=== PATIENT | male | born 1955 | race Caucasian/White ===

== ENCOUNTER 2017-11-23 18:20 | Inpatient (IN) | payer BC, OTHER ==
[2017-11-23 20:53] LABS: ADD MAN DIFF? NO
[2017-11-23] MEDS: HYDROmorphONE 1 MG/ML SYG IV (20:53)
[2017-11-23] MEDS: SOD CHLORIDE 0.9% 1,000 ML IV (20:53)
[2017-11-23] MEDS: ONDANSETRON 4 MG INJ IV (20:53)
[2017-11-23 20:55] LABS: BASOPHILS % 0.3 % (0.0-2.0); EOSINOPHILS # 0.3 10^3/ul (0.0-0.5); EOSINOPHILS % 3.8 % (0.0-7.0); HEMATOCRIT 44.7 % (42.0-52.0); HEMOGLOBIN 13.8 g/dl (14.0-18.0); LYMPHOCYTES # 1.2 10^3/ul (0.8-2.9); LYMPHOCYTES % 15.3 % (15.0-51.0); MEAN CORPUSCULAR HEMOGLOBIN 24.6 pg (29.0-33.0); MEAN CORPUSCULAR HGB CONC 30.9 g/dl (32.0-37.0); MEAN CORPUSCULAR VOLUME 79.5 fl (82.0-101.0); MEAN PLATELET VOLUME 9.3 fl (7.4-10.4); MONOCYTE # 0.9 10^3/ul (0.3-0.9); MONOCYTES % 10.8 % (0.0-11.0); NEUTROPHIL # 5.5 10^3/ul (1.6-7.5); NEUTROPHILS % 69.5 % (39.0-77.0); PLATELET COUNT 279 10^3/UL (140-415); RED BLOOD COUNT 5.62 10^6/ul (4.70-6.10); RED CELL DISTRIBUTION WIDTH 17.1 % (11.5-14.5)
[2017-11-23 20:58] LABS: ADD UMIC NO; UR ASCORBIC ACID NEGATIVE (NEGATIVE); UR BILIRUBIN (Dip) NEGATIVE (NEGATIVE); UR BLOOD (Dip) NEGATIVE (NEGATIVE); UR CLARITY CLEAR (CLEAR); UR COLOR YELLOW (YELLOW); UR GLUCOSE (Dip) NEGATIVE (NEGATIVE); UR KETONES (Dip) NEGATIVE (NEGATIVE); UR LEUKOCYTE ESTERASE (Dip) NEGATIVE Leu/ul (NEGATIVE); UR NITRITE (Dip) NEGATIVE (NEGATIVE); UR SPECIFIC GRAVITY (Dip) 1.015 (1.003-1.030); UR TOTAL PROTEIN (Dip) NEGATIVE (NEGATIVE); UR UROBILINOGEN (Dip) NEGATIVE (NEGATIVE)
[2017-11-23 21:15] LABS: ALANINE AMINOTRANSFERASE 33 IU/L (13-69); ALBUMIN 4.2 g/dl (3.3-4.9); ALBUMIN/GLOBULIN RATIO 1.23; ALKALINE PHOSPHATASE 97 IU/L (42-121); ANION GAP 15 (8-16); ASPARTATE AMINO TRANSFERASE 24 IU/L (15-46); BILIRUBIN,INDIRECT 0.3 mg/dl (0-1.1); BILIRUBIN,TOTAL 0.3 mg/dl (0.2-1.3); BLOOD UREA NITROGEN 12 mg/dl (7-20); CALCIUM 9.1 mg/dl (8.4-10.2); CARBON DIOXIDE 28 mmol/L (21-31); CHLORIDE 104 mmol/L (97-110); CREATININE 1.03 mg/dl (0.61-1.24); GLUCOSE 106 mg/dl (70-220); LIPASE 290 U/L (23-300); POTASSIUM 4.1 mmol/L (3.5-5.1); SODIUM 143 mmol/L (135-144); TOTAL PROTEIN 7.6 g/dl (6.1-8.1)
[2017-11-23 21:27] LABS: TROPONIN-I < 0.010 ng/ml (0.000-0.120)
[2017-11-23] MEDS ORDERED: ACETAMINOPHEN 325 MG TAB PO (22:00)
[2017-11-23] MEDS: HYDROmorphONE 2 MG/ML SYG IV (22:05)
[2017-11-23] MEDS ORDERED: hydrALAzine 20 MG INJ IV (23:00)
[2017-11-23] MEDS: HYDROmorphONE 0.5 MG/0.5 ML SYG IV (23:32)
[2017-11-24] MEDS: SOD CHLORIDE 0.9% 100 ML (00:12)
[2017-11-24] MEDS: IODIXANOL LOCM 100 ML BTL (00:12)
[2017-11-24] MEDS: D5W-0.45 NACL + KCL 20 MEQ 1,000 ML IV ×4 (00:38→23:02)
[2017-11-24] MEDS ORDERED: HYDROmorphONE 1 MG/ML SYG IV (01:30)
[2017-11-24] MEDS: HYDROmorphONE 2 MG/ML SYG IV ×6 (02:40→21:34)
[2017-11-24] MEDS: ONDANSETRON 4 MG INJ IV ×3 (02:42→21:35)
[2017-11-24] MEDS: PANTOPRAZOLE 40 MG INJ IV (06:05)
[2017-11-24 06:11] LABS: ADD MAN DIFF? NO
[2017-11-24 06:45] LABS: BASOPHILS % 0.5 % (0.0-2.0); EOSINOPHILS # 0.3 10^3/ul (0.0-0.5); EOSINOPHILS % 4.8 % (0.0-7.0); HEMATOCRIT 35.9 % (42.0-52.0); HEMOGLOBIN 11.9 g/dl (14.0-18.0); LYMPHOCYTES # 1.5 10^3/ul (0.8-2.9); LYMPHOCYTES % 22.4 % (15.0-51.0); MEAN CORPUSCULAR HEMOGLOBIN 28.3 pg (29.0-33.0); MEAN CORPUSCULAR HGB CONC 33.1 g/dl (32.0-37.0); MEAN CORPUSCULAR VOLUME 85.3 fl (82.0-101.0); MEAN PLATELET VOLUME 10.7 fl (7.4-10.4); MONOCYTE # 0.8 10^3/ul (0.3-0.9); MONOCYTES % 12.1 % (0.0-11.0); NEUTROPHIL # 3.9 10^3/ul (1.6-7.5); PLATELET COUNT 233 10^3/UL (140-415); RED BLOOD COUNT 4.21 10^6/ul (4.70-6.10); RED CELL DISTRIBUTION WIDTH 19.9 % (11.5-14.5)
[2017-11-24 06:45] LABS: WHITE BLOOD COUNT 6.5 10^3/ul (4.8-10.8)
[2017-11-24 07:14] LABS: ALANINE AMINOTRANSFERASE 29 IU/L (13-69); ALBUMIN 3.3 g/dl (3.3-4.9); ALBUMIN/GLOBULIN RATIO 1.06; ALKALINE PHOSPHATASE 74 IU/L (42-121); ANION GAP 11 (8-16); ASPARTATE AMINO TRANSFERASE 21 IU/L (15-46); BILIRUBIN,INDIRECT 0.4 mg/dl (0-1.1); BILIRUBIN,TOTAL 0.4 mg/dl (0.2-1.3); BLOOD UREA NITROGEN 11 mg/dl (7-20); CALCIUM 8.3 mg/dl (8.4-10.2); CARBON DIOXIDE 30 mmol/L (21-31); CHLORIDE 104 mmol/L (97-110); CHOL/HDL RATIO 3.9 RATIO; CHOLESTEROL 135 mg/dl (100-200); CREATININE 0.97 mg/dl (0.61-1.24); GLUCOSE 92 mg/dl (70-220); HDL CHOLESTEROL 34 mg/dl (30-78); LDL CHOLESTEROL,CALCULATED 89 mg/dl; POTASSIUM 4.1 mmol/L (3.5-5.1); SODIUM 141 mmol/L (135-144); TOTAL PROTEIN 6.4 g/dl (6.1-8.1); TRIGLYCERIDES 60 mg/dl (0-149)
[2017-11-25] MEDS: HYDROmorphONE 2 MG/ML SYG IV ×6 (02:19→20:25)
[2017-11-25] MEDS: ONDANSETRON 4 MG INJ IV ×4 (02:19→15:58)
[2017-11-25 05:08] LABS: ADD MAN DIFF? NO
[2017-11-25 05:11] LABS: WHITE BLOOD COUNT 6.2 10^3/ul (4.8-10.8)
[2017-11-25 05:11] LABS: BASOPHILS % 0.5 % (0.0-2.0); EOSINOPHILS # 0.3 10^3/ul (0.0-0.5); HEMATOCRIT 41.8 % (42.0-52.0); LYMPHOCYTES # 0.7 10^3/ul (0.8-2.9); LYMPHOCYTES % 11.9 % (15.0-51.0); MEAN CORPUSCULAR HEMOGLOBIN 25.2 pg (29.0-33.0); MEAN CORPUSCULAR HGB CONC 31.1 g/dl (32.0-37.0); MEAN PLATELET VOLUME 9.6 fl (7.4-10.4); MONOCYTE # 0.4 10^3/ul (0.3-0.9); MONOCYTES % 6.2 % (0.0-11.0); NEUTROPHIL # 4.7 10^3/ul (1.6-7.5); NEUTROPHILS % 76.1 % (39.0-77.0); PLATELET COUNT 244 10^3/UL (140-415); RED BLOOD COUNT 5.16 10^6/ul (4.70-6.10)
[2017-11-25] MEDS: PANTOPRAZOLE 40 MG INJ IV (05:14)
[2017-11-25 05:50] LABS: AMYLASE 43 U/L (11-123); ANION GAP 13 (8-16); BLOOD UREA NITROGEN 8 mg/dl (7-20); CALCIUM 8.7 mg/dl (8.4-10.2); CARBON DIOXIDE 28 mmol/L (21-31); CHLORIDE 103 mmol/L (97-110); CREATININE 0.98 mg/dl (0.61-1.24); GLUCOSE 109 mg/dl (70-220); LIPASE 125 U/L (23-300); POTASSIUM 4.4 mmol/L (3.5-5.1); SODIUM 140 mmol/L (135-144)
[2017-11-25] MEDS: D5W-0.45 NACL + KCL 20 MEQ 1,000 ML IV ×2 (07:08→15:14)
[2017-11-25] MEDS: ACETAMINOPHEN 325 MG TAB PO (20:25)
[2017-11-26] MEDS: HYDROmorphONE 2 MG/ML SYG IV ×5 (00:29→18:55)
[2017-11-26] MEDS: D5W-0.45 NACL + KCL 20 MEQ 1,000 ML IV ×4 (00:33→23:00)
[2017-11-26] MEDS: PANTOPRAZOLE 40 MG INJ IV (06:11)
[2017-11-26] MEDS: ONDANSETRON 4 MG INJ IV ×4 (06:12→23:23)
[2017-11-26 06:45] LABS: ADD MAN DIFF? NO
[2017-11-26 06:47] LABS: ABNORMAL IP MESSAGE 1; BASOPHILS % 0.3 % (0.0-2.0); EOSINOPHILS # 0.1 10^3/ul (0.0-0.5); EOSINOPHILS % 2.2 % (0.0-7.0); HEMATOCRIT 41.5 % (42.0-52.0); HEMOGLOBIN 13.1 g/dl (14.0-18.0); LYMPHOCYTES # 0.6 10^3/ul (0.8-2.9); LYMPHOCYTES % 15.2 % (15.0-51.0); MEAN CORPUSCULAR HGB CONC 31.6 g/dl (32.0-37.0); MEAN CORPUSCULAR VOLUME 79.2 fl (82.0-101.0); MEAN PLATELET VOLUME 9.6 fl (7.4-10.4); MONOCYTE # 0.5 10^3/ul (0.3-0.9); MONOCYTES % 13.9 % (0.0-11.0); NEUTROPHIL # 2.5 10^3/ul (1.6-7.5); NEUTROPHILS % 68.1 % (39.0-77.0); PLATELET COUNT 214 10^3/UL (140-415); POSITIVE DIFF @See below; RED BLOOD COUNT 5.24 10^6/ul (4.70-6.10); RED CELL DISTRIBUTION WIDTH 16.7 % (11.5-14.5)
[2017-11-26 06:47] LABS: WHITE BLOOD COUNT 3.7 10^3/ul (4.8-10.8)
[2017-11-26 07:05] LABS: ANION GAP 11 (8-16); BLOOD UREA NITROGEN 8 mg/dl (7-20); CALCIUM 8.3 mg/dl (8.4-10.2); CARBON DIOXIDE 29 mmol/L (21-31); CHLORIDE 99 mmol/L (97-110); CREATININE 1.16 mg/dl (0.61-1.24); GLUCOSE 107 mg/dl (70-220); POTASSIUM 4.2 mmol/L (3.5-5.1); SODIUM 135 mmol/L (135-144)
[2017-11-26 07:35] LABS: THYROID STIMULATING HORMONE 0.282 MIU/L (0.465-4.680)
[2017-11-26] MEDS ORDERED: ANASTROZOLE 1 MG TAB PO (10:00)
[2017-11-26] MEDS: CEFTRIAXONE 1 GM/50 ML (PMX) 50 ML IVPB (12:55)
[2017-11-26] MEDS: THYROID 30 MG TAB PO (14:58)
[2017-11-26] MEDS: PANTOPRAZOLE (EC) 40 MG TAB PO (17:34)
[2017-11-26] MEDS: DIPYRIDAMOLE/ASPIRIN (SR) CAP PO (20:32)
[2017-11-26] MEDS: TAMSULOSIN (SR) 0.4 MG CAP PO (20:32)
[2017-11-26] MEDS: ATORVASTATIN 20 MG TAB PO (20:32)
[2017-11-26] MEDS: BISACODYL 10 MG SUPP PR (22:36)
[2017-11-27] MEDS: HYDROmorphONE 2 MG/ML SYG IV ×3 (00:45→17:56)
[2017-11-27] MEDS: D5W-0.45 NACL + KCL 20 MEQ 1,000 ML IV ×3 (00:49→21:05)
[2017-11-27] MEDS: PANTOPRAZOLE (EC) 40 MG TAB PO ×2 (07:00→17:31)
[2017-11-27] MEDS ORDERED: PROPOFOL 200 MG INJ (07:00)
[2017-11-27] MEDS ORDERED: LIDOCAINE 2% (SDV) 5 ML INJ (07:00)
[2017-11-27 07:36] LABS: ADD MAN DIFF? NO
[2017-11-27 07:38] LABS: WHITE BLOOD COUNT 3.8 10^3/ul (4.8-10.8)
[2017-11-27 07:38] LABS: BASOPHILS % 0.3 % (0.0-2.0); HEMATOCRIT 41.6 % (42.0-52.0); HEMOGLOBIN 13.1 g/dl (14.0-18.0); LYMPHOCYTES # 0.9 10^3/ul (0.8-2.9); LYMPHOCYTES % 22.3 % (15.0-51.0); MEAN CORPUSCULAR HEMOGLOBIN 25.4 pg (29.0-33.0); MEAN CORPUSCULAR HGB CONC 31.5 g/dl (32.0-37.0); MEAN CORPUSCULAR VOLUME 80.6 fl (82.0-101.0); MEAN PLATELET VOLUME 9.4 fl (7.4-10.4); MONOCYTE # 0.7 10^3/ul (0.3-0.9); MONOCYTES % 17.1 % (0.0-11.0); NEUTROPHIL # 2.3 10^3/ul (1.6-7.5); PLATELET COUNT 222 10^3/UL (140-415); RED BLOOD COUNT 5.16 10^6/ul (4.70-6.10); RED CELL DISTRIBUTION WIDTH 16.4 % (11.5-14.5)
[2017-11-27 07:57] LABS: INR 1.01; PROTIME 13.4 Sec (11.9-14.9)
[2017-11-27 07:59] LABS: ANION GAP 11 (8-16); BLOOD UREA NITROGEN 7 mg/dl (7-20); CALCIUM 8.6 mg/dl (8.4-10.2); CARBON DIOXIDE 30 mmol/L (21-31); CHLORIDE 100 mmol/L (97-110); GLUCOSE 123 mg/dl (70-220); POTASSIUM 4.4 mmol/L (3.5-5.1); SODIUM 137 mmol/L (135-144)
[2017-11-27] MEDS: THYROID 30 MG TAB PO (09:00)
[2017-11-27] MEDS: CEFTRIAXONE 1 GM/50 ML (PMX) 50 ML IVPB (11:30)
[2017-11-27] MEDS: PROPOFOL 20 ML (12:20)
[2017-11-27] MEDS: DIPYRIDAMOLE/ASPIRIN (SR) CAP PO ×2 (14:15→21:02)
[2017-11-27] MEDS: LISINOPRIL 10 MG TAB PO (14:16)
[2017-11-27] MEDS: SENNA TAB PO ×2 (14:16→21:02)
[2017-11-27] MEDS: ANASTROZOLE 1 MG TAB PO (15:23)
[2017-11-27] MEDS: ONDANSETRON 4 MG INJ IV ×2 (17:57→22:48)
[2017-11-27] MEDS: ATORVASTATIN 20 MG TAB PO (21:01)
[2017-11-27] MEDS: TAMSULOSIN (SR) 0.4 MG CAP PO (21:02)
[2017-11-27] MEDS: ACETAMINOPHEN 325 MG TAB PO (21:02)
[2017-11-28] MEDS: HYDROmorphONE 2 MG/ML SYG IV ×3 (01:17→19:47)
[2017-11-28] MEDS: D5W-0.45 NACL + KCL 20 MEQ 1,000 ML IV ×3 (05:24→15:00)
[2017-11-28 08:55] LABS: ANION GAP 13 (8-16); BLOOD UREA NITROGEN 6 mg/dl (7-20); CALCIUM 8.5 mg/dl (8.4-10.2); CARBON DIOXIDE 28 mmol/L (21-31); CHLORIDE 103 mmol/L (97-110); CREATININE 1.01 mg/dl (0.61-1.24); GLUCOSE 111 mg/dl (70-220); POTASSIUM 4.1 mmol/L (3.5-5.1); SODIUM 140 mmol/L (135-144)
[2017-11-28] MEDS: SENNA TAB PO ×2 (09:00→20:44)
[2017-11-28] MEDS: PANTOPRAZOLE (EC) 40 MG TAB PO ×2 (09:35→17:38)
[2017-11-28] MEDS: THYROID 30 MG TAB PO (09:35)
[2017-11-28] MEDS: LISINOPRIL 10 MG TAB PO (09:35)
[2017-11-28] MEDS: DIPYRIDAMOLE/ASPIRIN (SR) CAP PO ×2 (09:35→20:43)
[2017-11-28] MEDS: CEFTRIAXONE 1 GM/50 ML (PMX) 50 ML IVPB (11:52)
[2017-11-28] MEDS: ONDANSETRON 4 MG INJ IV (13:52)
[2017-11-28] MEDS: TAMSULOSIN (SR) 0.4 MG CAP PO (20:43)
[2017-11-28] MEDS: ATORVASTATIN 20 MG TAB PO (20:43)
[2017-11-29] MEDS: ONDANSETRON 4 MG INJ IV (01:29)
[2017-11-29] MEDS: HYDROmorphONE 2 MG/ML SYG IV ×3 (01:30→16:03)
[2017-11-29 06:38] LABS: ADD MAN DIFF? NO
[2017-11-29 06:44] LABS: WHITE BLOOD COUNT 3.7 10^3/ul (4.8-10.8)
[2017-11-29 06:44] LABS: BASOPHILS % 0.5 % (0.0-2.0); EOSINOPHILS # 0.2 10^3/ul (0.0-0.5); EOSINOPHILS % 5.1 % (0.0-7.0); HEMATOCRIT 42.5 % (42.0-52.0); HEMOGLOBIN 13.1 g/dl (14.0-18.0); LYMPHOCYTES # 1.3 10^3/ul (0.8-2.9); MEAN CORPUSCULAR HEMOGLOBIN 24.3 pg (29.0-33.0); MEAN CORPUSCULAR HGB CONC 30.8 g/dl (32.0-37.0); MEAN CORPUSCULAR VOLUME 78.7 fl (82.0-101.0); MEAN PLATELET VOLUME 9.8 fl (7.4-10.4); MONOCYTE # 0.6 10^3/ul (0.3-0.9); MONOCYTES % 15.8 % (0.0-11.0); NEUTROPHIL # 1.7 10^3/ul (1.6-7.5); NEUTROPHILS % 44.3 % (39.0-77.0); PLATELET COUNT 255 10^3/UL (140-415); RED CELL DISTRIBUTION WIDTH 17.1 % (11.5-14.5)
[2017-11-29 06:59] LABS: ANION GAP 12 (8-16); BLOOD UREA NITROGEN 10 mg/dl (7-20); CALCIUM 8.7 mg/dl (8.4-10.2); CARBON DIOXIDE 28 mmol/L (21-31); CHLORIDE 105 mmol/L (97-110); CREATININE 1.04 mg/dl (0.61-1.24); GLUCOSE 93 mg/dl (70-220); POTASSIUM 4.3 mmol/L (3.5-5.1); SODIUM 141 mmol/L (135-144)
[2017-11-29] MEDS: SENNA TAB PO ×2 (09:00→20:46)
[2017-11-29] MEDS: LISINOPRIL 10 MG TAB PO (09:00)
[2017-11-29] MEDS: PANTOPRAZOLE (EC) 40 MG TAB PO (10:09)
[2017-11-29] MEDS: DIPYRIDAMOLE/ASPIRIN (SR) CAP PO ×2 (10:10→20:46)
[2017-11-29] MEDS: THYROID 30 MG TAB PO (10:10)
[2017-11-29] MEDS: CEFTRIAXONE 1 GM/50 ML (PMX) 50 ML IVPB (10:14)
[2017-11-29] MEDS: LOPERAMIDE 2 MG CAP PO (14:16)
[2017-11-29] MEDS: ATORVASTATIN 20 MG TAB PO (20:46)
[2017-11-29] MEDS: TAMSULOSIN (SR) 0.4 MG CAP PO (20:46)
[2017-11-30] MEDS: HYDROmorphONE 2 MG/ML SYG IV (00:51)
[2017-11-30] MEDS: PANTOPRAZOLE (EC) 40 MG TAB PO (05:15)
[2017-11-30 06:32] LABS: ADD MAN DIFF? NO
[2017-11-30 06:42] LABS: BASOPHILS % 0.5 % (0.0-2.0); EOSINOPHILS # 0.1 10^3/ul (0.0-0.5); EOSINOPHILS % 3.8 % (0.0-7.0); HEMATOCRIT 40.3 % (42.0-52.0); HEMOGLOBIN 13.2 g/dl (14.0-18.0); LYMPHOCYTES # 1.4 10^3/ul (0.8-2.9); LYMPHOCYTES % 36.9 % (15.0-51.0); MEAN CORPUSCULAR HEMOGLOBIN 27.1 pg (29.0-33.0); MEAN CORPUSCULAR HGB CONC 32.8 g/dl (32.0-37.0); MEAN CORPUSCULAR VOLUME 82.8 fl (82.0-101.0); MEAN PLATELET VOLUME 10.2 fl (7.4-10.4); MONOCYTE # 0.4 10^3/ul (0.3-0.9); MONOCYTES % 11.6 % (0.0-11.0); NEUTROPHIL # 1.7 10^3/ul (1.6-7.5); NEUTROPHILS % 46.9 % (39.0-77.0); PLATELET COUNT 280 10^3/UL (140-415); RED BLOOD COUNT 4.87 10^6/ul (4.70-6.10); RED CELL DISTRIBUTION WIDTH 19.7 % (11.5-14.5)
[2017-11-30 06:42] LABS: WHITE BLOOD COUNT 3.7 10^3/ul (4.8-10.8)
[2017-11-30 07:13] LABS: ANION GAP 14 (8-16); BLOOD UREA NITROGEN 12 mg/dl (7-20); CALCIUM 8.7 mg/dl (8.4-10.2); CARBON DIOXIDE 28 mmol/L (21-31); CHLORIDE 103 mmol/L (97-110); CREATININE 1.01 mg/dl (0.61-1.24); GLUCOSE 93 mg/dl (70-220); POTASSIUM 4.1 mmol/L (3.5-5.1); SODIUM 141 mmol/L (135-144)
[2017-11-30] MEDS: SENNA TAB PO (08:04)
[2017-11-30] MEDS: DIPYRIDAMOLE/ASPIRIN (SR) CAP PO (08:04)
[2017-11-30] MEDS: ASPIRIN 81 MG TAB PO (08:04)
[2017-11-30] MEDS: THYROID 30 MG TAB PO (08:04)
[2017-11-30] MEDS: LISINOPRIL 10 MG TAB PO (08:05)
== END 2017-11-30 18:50 | disposition home or self-care (01) | DRG 392 ==
LOC: MS3 21:56 → 5EC 11-25 14:35 → E/R 18:20
PROC: 0DB68ZX Excision of Stomach, Via Natural or Artificial Opening Endoscopic, Diagnostic (ICD-10-PCS; principal; 2017-11-27 11:52)
DX: R10.13 Epigastric pain (principal); N39.0 Urinary tract infection, site not specified; I10 Essential (primary) hypertension; G89.29 Other chronic pain; M54.9 Dorsalgia, unspecified; D45 Polycythemia vera; E78.5 Hyperlipidemia, unspecified; N40.0 Benign prostatic hyperplasia without lower urinary tract symptoms; E03.9 Hypothyroidism, unspecified; E34.8 Other specified endocrine disorders; R11.0 Nausea; K29.70 Gastritis, unspecified, without bleeding; R19.7 Diarrhea, unspecified
CPT/HCPCS: 36415; 74176; 74177; 76705; 80048; 80053; 80061; 81003; 82150; 83690; 84439; 84443; 84484; 85025; 85610; 85730; 87086; 88305; 93005; 96374; 96375; 99285-25

== ENCOUNTER 2017-12-14 22:27 | Inpatient (IN) | payer BC ==
[2017-12-14 23:35] LABS: ADD MAN DIFF? NO
[2017-12-14 23:42] LABS: WHITE BLOOD COUNT 9.1 10^3/ul (4.8-10.8)
[2017-12-14 23:42] LABS: BASOPHILS % 0.2 % (0.0-2.0); EOSINOPHILS # 0.1 10^3/ul (0.0-0.5); EOSINOPHILS % 1.1 % (0.0-7.0); HEMATOCRIT 41.9 % (42.0-52.0); HEMOGLOBIN 13.4 g/dl (14.0-18.0); LYMPHOCYTES % 10.7 % (15.0-51.0); MEAN CORPUSCULAR HEMOGLOBIN 24.9 pg (29.0-33.0); MEAN CORPUSCULAR VOLUME 77.9 fl (82.0-101.0); MEAN PLATELET VOLUME 9.7 fl (7.4-10.4); MONOCYTE # 1.1 10^3/ul (0.3-0.9); MONOCYTES % 11.5 % (0.0-11.0); NEUTROPHILS % 76.3 % (39.0-77.0); PLATELET COUNT 340 10^3/UL (140-415); RED BLOOD COUNT 5.38 10^6/ul (4.70-6.10); RED CELL DISTRIBUTION WIDTH 18.3 % (11.5-14.5)
[2017-12-14] MEDS: ACETAMINOPHEN 325 MG TAB PO (23:45)
[2017-12-14] MEDS: SODIUM CHLORIDE 0.9% 1L BAG IV* (23:52)
[2017-12-14 23:55] LABS: INR 0.99; PROTIME 13.2 Sec (11.9-14.9)
[2017-12-14 23:56] LABS: PARTIAL THROMBOPLASTIN TIME 32.1 Sec (25.0-35.0)
[2017-12-15 00:21] LABS: ALANINE AMINOTRANSFERASE 37 IU/L (13-69); ALBUMIN 3.7 g/dl (3.3-4.9); ALBUMIN/GLOBULIN RATIO 1.02; ALKALINE PHOSPHATASE 91 IU/L (42-121); ANION GAP 13 (8-16); ASPARTATE AMINO TRANSFERASE 21 IU/L (15-46); BILIRUBIN,INDIRECT 0.9 mg/dl (0-1.1); BILIRUBIN,TOTAL 0.9 mg/dl (0.2-1.3); BLOOD UREA NITROGEN 12 mg/dl (7-20); CALCIUM 8.9 mg/dl (8.4-10.2); CARBON DIOXIDE 26 mmol/L (21-31); CHLORIDE 99 mmol/L (97-110); CREATININE 1.32 mg/dl (0.61-1.24); GLUCOSE 115 mg/dl (70-220); LIPASE 168 U/L (23-300); POTASSIUM 3.7 mmol/L (3.5-5.1); SODIUM 134 mmol/L (135-144); TOTAL PROTEIN 7.3 g/dl (6.1-8.1)
[2017-12-15 00:24] LABS: TROPONIN-I < 0.012 ng/ml (0.000-0.120)
[2017-12-15] MEDS: KETOROLAC 15 MG INJ IV (01:20)
[2017-12-15] MEDS: HYDROmorphONE 0.5 MG/0.5 ML SYG IV (01:32)
[2017-12-15] MEDS: MEROPENEM 1 GM/50ML(PMX) 50 ML IVPB ×3 (01:40→21:16)
[2017-12-15 02:36] LABS: URINE PH (Dip) POC 5.5 (5.0-8.5)
[2017-12-15 02:36] LABS: URINE BLOOD (Dip) POC Negative (NEGATIVE); URINE GLUCOSE (Dip) POC Negative (NEGATIVE); URINE KETONES (Dip) POC 1+ (NEGATIVE); URINE LEUKOCYTE EST (Dip) POC Trace (NEGATIVE); URINE NITRITE (Dip) POC Negative (NEGATIVE); URINE TOTAL PROTEIN POC 1+ (NEGATIVE)
[2017-12-15 02:47] LABS: ADD UMIC YES; UR ASCORBIC ACID NEGATIVE (NEGATIVE); UR BILIRUBIN (Dip) NEGATIVE (NEGATIVE); UR BLOOD (Dip) NEGATIVE (NEGATIVE); UR CLARITY CLEAR (CLEAR); UR COLOR YELLOW (YELLOW); UR GLUCOSE (Dip) NEGATIVE (NEGATIVE); UR KETONES (Dip) TRACE mg/dL (NEGATIVE); UR LEUKOCYTE ESTERASE (Dip) TRACE Leu/ul (NEGATIVE); UR MUCUS FEW /HPF (NONE SEEN); UR NITRITE (Dip) NEGATIVE (NEGATIVE); UR RBC 1 /HPF (0-5); UR SPECIFIC GRAVITY (Dip) 1.011 (1.003-1.030); UR TOTAL PROTEIN (Dip) NEGATIVE (NEGATIVE); UR UROBILINOGEN (Dip) 2+ mg/dL (NEGATIVE); UR WBC 1 /HPF (0-5)
[2017-12-15] MEDS: HYDROmorphONE 1 MG/ML SYG IV ×6 (03:40→23:28)
[2017-12-15] MEDS ORDERED: morphine 2 MG INJ IV (06:30)
[2017-12-15] MEDS: PANTOPRAZOLE 40 MG INJ IV (06:48)
[2017-12-15] MEDS: D5W-0.45 NACL + KCL 20 MEQ 1,000 ML IV ×3 (06:48→22:30)
[2017-12-15] MEDS: LISINOPRIL 10 MG TAB PO (08:25)
[2017-12-15] MEDS: THYROID 30 MG TAB PO (12:00)
[2017-12-15] MEDS: TAMSULOSIN (SR) 0.4 MG CAP PO (20:16)
[2017-12-15] MEDS: ATORVASTATIN 20 MG TAB PO (20:16)
[2017-12-16] MEDS: HYDROmorphONE 1 MG/ML SYG IV ×6 (03:12→22:02)
[2017-12-16] MEDS: D5W-0.45 NACL + KCL 20 MEQ 1,000 ML IV ×4 (03:13→22:01)
[2017-12-16 05:12] LABS: ADD MAN DIFF? NO
[2017-12-16 05:17] LABS: WHITE BLOOD COUNT 4.3 10^3/ul (4.8-10.8)
[2017-12-16 05:17] LABS: BASOPHILS % 0.5 % (0.0-2.0); EOSINOPHILS # 0.2 10^3/ul (0.0-0.5); EOSINOPHILS % 5.1 % (0.0-7.0); HEMATOCRIT 36.5 % (42.0-52.0); HEMOGLOBIN 11.6 g/dl (14.0-18.0); LYMPHOCYTES # 0.7 10^3/ul (0.8-2.9); LYMPHOCYTES % 16.5 % (15.0-51.0); MEAN CORPUSCULAR HEMOGLOBIN 25.1 pg (29.0-33.0); MEAN CORPUSCULAR HGB CONC 31.8 g/dl (32.0-37.0); MEAN CORPUSCULAR VOLUME 78.8 fl (82.0-101.0); MEAN PLATELET VOLUME 9.6 fl (7.4-10.4); MONOCYTE # 0.5 10^3/ul (0.3-0.9); MONOCYTES % 10.7 % (0.0-11.0); NEUTROPHIL # 2.9 10^3/ul (1.6-7.5); NEUTROPHILS % 66.7 % (39.0-77.0); PLATELET COUNT 240 10^3/UL (140-415); RED BLOOD COUNT 4.63 10^6/ul (4.70-6.10); RED CELL DISTRIBUTION WIDTH 16.8 % (11.5-14.5)
[2017-12-16 05:43] LABS: ANION GAP 9 (8-16); BLOOD UREA NITROGEN 8 mg/dl (7-20); CALCIUM 8.2 mg/dl (8.4-10.2); CARBON DIOXIDE 26 mmol/L (21-31); CHLORIDE 104 mmol/L (97-110); CREATININE 0.95 mg/dl (0.61-1.24); GLUCOSE 100 mg/dl (70-220); SODIUM 135 mmol/L (135-144)
[2017-12-16] MEDS: MEROPENEM 1 GM/50ML(PMX) 50 ML IVPB ×3 (05:49→22:01)
[2017-12-16] MEDS: PANTOPRAZOLE 40 MG INJ IV (05:50)
[2017-12-16] MEDS: THYROID 30 MG TAB PO (09:40)
[2017-12-16] MEDS: LISINOPRIL 10 MG TAB PO (09:41)
[2017-12-16] MEDS: ONDANSETRON 4 MG INJ IV (12:36)
[2017-12-16] MEDS: TAMSULOSIN (SR) 0.4 MG CAP PO (22:01)
[2017-12-16] MEDS: ATORVASTATIN 20 MG TAB PO (22:02)
[2017-12-16 23:02] LABS: LIPASE 87 U/L (23-300)
[2017-12-17] MEDS: HYDROmorphONE 1 MG/ML SYG IV ×4 (04:44→21:36)
[2017-12-17] MEDS: PANTOPRAZOLE 40 MG INJ IV (05:26)
[2017-12-17] MEDS: MEROPENEM 1 GM/50ML(PMX) 50 ML IVPB ×3 (05:27→21:35)
[2017-12-17] MEDS: D5W-0.45 NACL + KCL 20 MEQ 1,000 ML IV ×3 (06:30→17:46)
[2017-12-17 07:09] LABS: AMYLASE < 30 U/L (11-123)
[2017-12-17] MEDS: THYROID 30 MG TAB PO (08:35)
[2017-12-17] MEDS: LISINOPRIL 10 MG TAB PO (08:36)
[2017-12-17] MEDS: ONDANSETRON 4 MG INJ IV (08:44)
[2017-12-17] MEDS: ATORVASTATIN 20 MG TAB PO (21:07)
[2017-12-17] MEDS: TAMSULOSIN (SR) 0.4 MG CAP PO (21:07)
[2017-12-18] MEDS: HYDROmorphONE 1 MG/ML SYG IV ×4 (02:21→16:40)
[2017-12-18] MEDS: D5W-0.45 NACL + KCL 20 MEQ 1,000 ML IV ×3 (03:16→22:28)
[2017-12-18] MEDS: PANTOPRAZOLE 40 MG INJ IV (05:36)
[2017-12-18] MEDS: MEROPENEM 1 GM/50ML(PMX) 50 ML IVPB ×3 (05:36→21:32)
[2017-12-18] MEDS: THYROID 30 MG TAB PO (09:45)
[2017-12-18] MEDS: LISINOPRIL 10 MG TAB PO (09:46)
[2017-12-18] MEDS: MIDAZOLAM 1 MG/ML 2 ML INJ IV (14:30)
[2017-12-18] MEDS: ONDANSETRON 4 MG INJ IV (15:34)
[2017-12-18 17:09] LABS: ASPARTATE AMINO TRANSFERASE 35 IU/L (15-46)
[2017-12-18 17:09] LABS: ALANINE AMINOTRANSFERASE 32 IU/L (13-69); LIPASE 126 U/L (23-300); TRIGLYCERIDES 111 mg/dl (0-149)
[2017-12-18] MEDS: TAMSULOSIN (SR) 0.4 MG CAP PO (21:32)
[2017-12-18] MEDS: ATORVASTATIN 20 MG TAB PO (21:32)
[2017-12-19] MEDS: HYDROmorphONE 1 MG/ML SYG IV ×5 (03:11→23:55)
[2017-12-19] MEDS: ONDANSETRON 4 MG INJ IV ×3 (03:20→23:54)
[2017-12-19 05:41] LABS: ADD MAN DIFF? NO
[2017-12-19] MEDS: MEROPENEM 1 GM/50ML(PMX) 50 ML IVPB ×3 (05:43→21:29)
[2017-12-19] MEDS: PANTOPRAZOLE 40 MG INJ IV (05:44)
[2017-12-19 05:46] LABS: BASOPHILS % 0.3 % (0.0-2.0); EOSINOPHILS # 0.2 10^3/ul (0.0-0.5); EOSINOPHILS % 5.3 % (0.0-7.0); HEMATOCRIT 41.5 % (42.0-52.0); HEMOGLOBIN 13.4 g/dl (14.0-18.0); LYMPHOCYTES # 0.7 10^3/ul (0.8-2.9); LYMPHOCYTES % 19.2 % (15.0-51.0); MEAN CORPUSCULAR HEMOGLOBIN 25.5 pg (29.0-33.0); MEAN CORPUSCULAR HGB CONC 32.3 g/dl (32.0-37.0); MEAN PLATELET VOLUME 9.9 fl (7.4-10.4); MONOCYTE # 0.4 10^3/ul (0.3-0.9); MONOCYTES % 10.4 % (0.0-11.0); NEUTROPHIL # 2.2 10^3/ul (1.6-7.5); NEUTROPHILS % 64.2 % (39.0-77.0); PLATELET COUNT 232 10^3/UL (140-415); RED BLOOD COUNT 5.25 10^6/ul (4.70-6.10); RED CELL DISTRIBUTION WIDTH 18.9 % (11.5-14.5)
[2017-12-19 05:46] LABS: WHITE BLOOD COUNT 3.4 10^3/ul (4.8-10.8)
[2017-12-19 06:21] LABS: ANION GAP 12 (8-16); BLOOD UREA NITROGEN 6 mg/dl (7-20); CALCIUM 8.9 mg/dl (8.4-10.2); CARBON DIOXIDE 30 mmol/L (21-31); CHLORIDE 100 mmol/L (97-110); CREATININE 0.96 mg/dl (0.61-1.24); GLUCOSE 126 mg/dl (70-220); POTASSIUM 4.2 mmol/L (3.5-5.1); SODIUM 138 mmol/L (135-144)
[2017-12-19] MEDS: D5W-0.45 NACL + KCL 20 MEQ 1,000 ML IV ×2 (06:52→18:59)
[2017-12-19] MEDS: THYROID 30 MG TAB PO (10:07)
[2017-12-19] MEDS: LISINOPRIL 10 MG TAB PO (10:08)
[2017-12-19] MEDS: ATORVASTATIN 20 MG TAB PO (20:23)
[2017-12-19] MEDS: TAMSULOSIN (SR) 0.4 MG CAP PO (20:24)
[2017-12-20 05:21] LABS: ADD MAN DIFF? NO
[2017-12-20] MEDS: PANTOPRAZOLE 40 MG INJ IV (05:22)
[2017-12-20] MEDS: MEROPENEM 1 GM/50ML(PMX) 50 ML IVPB ×2 (05:22→14:48)
[2017-12-20 05:23] LABS: BASOPHILS % 0.4 % (0.0-2.0); EOSINOPHILS # 0.1 10^3/ul (0.0-0.5); EOSINOPHILS % 3.6 % (0.0-7.0); HEMATOCRIT 41.6 % (42.0-52.0); HEMOGLOBIN 13.2 g/dl (14.0-18.0); LYMPHOCYTES # 0.7 10^3/ul (0.8-2.9); LYMPHOCYTES % 29.1 % (15.0-51.0); MEAN CORPUSCULAR HEMOGLOBIN 25.2 pg (29.0-33.0); MEAN CORPUSCULAR HGB CONC 31.7 g/dl (32.0-37.0); MEAN CORPUSCULAR VOLUME 79.5 fl (82.0-101.0); MEAN PLATELET VOLUME 9.9 fl (7.4-10.4); MONOCYTE # 0.5 10^3/ul (0.3-0.9); MONOCYTES % 18.3 % (0.0-11.0); NEUTROPHIL # 1.2 10^3/ul (1.6-7.5); NEUTROPHILS % 48.2 % (39.0-77.0); PLATELET COUNT 189 10^3/UL (140-415); RED BLOOD COUNT 5.23 10^6/ul (4.70-6.10); RED CELL DISTRIBUTION WIDTH 18.4 % (11.5-14.5)
[2017-12-20 05:23] LABS: WHITE BLOOD COUNT 2.5 10^3/ul (4.8-10.8)
[2017-12-20 05:55] LABS: ANION GAP 10 (8-16); BLOOD UREA NITROGEN 7 mg/dl (7-20); CALCIUM 8.7 mg/dl (8.4-10.2); CARBON DIOXIDE 30 mmol/L (21-31); CHLORIDE 101 mmol/L (97-110); CREATININE 1.01 mg/dl (0.61-1.24); GLUCOSE 94 mg/dl (70-220); LIPASE 175 U/L (23-300); POTASSIUM 4.4 mmol/L (3.5-5.1); SODIUM 137 mmol/L (135-144)
[2017-12-20 08:04] LABS: ADD UMIC YES; UR ASCORBIC ACID NEGATIVE (NEGATIVE); UR BILIRUBIN (Dip) NEGATIVE (NEGATIVE); UR BLOOD (Dip) 1+ mg/dL (NEGATIVE); UR CLARITY CLEAR (CLEAR); UR COLOR AMBER (YELLOW); UR GLUCOSE (Dip) NEGATIVE (NEGATIVE); UR KETONES (Dip) NEGATIVE (NEGATIVE); UR LEUKOCYTE ESTERASE (Dip) NEGATIVE Leu/ul (NEGATIVE); UR NITRITE (Dip) NEGATIVE (NEGATIVE); UR RBC 1 /HPF (0-5); UR TOTAL PROTEIN (Dip) NEGATIVE (NEGATIVE); UR UROBILINOGEN (Dip) 2+ mg/dL (NEGATIVE); UR WBC 0 /HPF (0-5)
[2017-12-20] MEDS: THYROID 30 MG TAB PO (10:01)
[2017-12-20] MEDS: LISINOPRIL 10 MG TAB PO (10:01)
[2017-12-20] MEDS: HYDROmorphONE 1 MG/ML SYG IV ×3 (14:59→22:00)
[2017-12-20] MEDS: D5W-0.45 NACL + KCL 20 MEQ 1,000 ML IV ×2 (16:48→22:50)
[2017-12-20] MEDS: PIPER-TAZO 3.375 GM IV (PMX) 100 ML IVPB (18:30)
[2017-12-20] MEDS: ONDANSETRON 4 MG INJ IV (21:32)
[2017-12-20] MEDS: ATORVASTATIN 20 MG TAB PO (21:36)
[2017-12-20] MEDS: TAMSULOSIN (SR) 0.4 MG CAP PO (21:36)
[2017-12-20] MEDS: LORAZEPAM 2 MG INJ IV ×2 (21:54→22:21)
[2017-12-20] MEDS: PEG/ELECTROLYTES 4L BTL PO (21:54)
[2017-12-21] MEDS: PIPER-TAZO 3.375 GM IV (PMX) 100 ML IVPB ×2 (02:26→11:19)
[2017-12-21] MEDS: HYDROmorphONE 1 MG/ML SYG IV ×5 (02:30→21:34)
[2017-12-21 05:45] LABS: ADD MAN DIFF? NO
[2017-12-21] MEDS: PANTOPRAZOLE 40 MG INJ IV (05:48)
[2017-12-21 06:02] LABS: BASOPHILS % 0.6 % (0.0-2.0); EOSINOPHILS # 0.1 10^3/ul (0.0-0.5); EOSINOPHILS % 1.8 % (0.0-7.0); HEMATOCRIT 41.1 % (42.0-52.0); HEMOGLOBIN 13.6 g/dl (14.0-18.0); LYMPHOCYTES % 29.4 % (15.0-51.0); MEAN CORPUSCULAR HEMOGLOBIN 26.7 pg (29.0-33.0); MEAN CORPUSCULAR HGB CONC 33.1 g/dl (32.0-37.0); MEAN CORPUSCULAR VOLUME 80.6 fl (82.0-101.0); MEAN PLATELET VOLUME 10.3 fl (7.4-10.4); MONOCYTE # 0.6 10^3/ul (0.3-0.9); MONOCYTES % 18.4 % (0.0-11.0); NEUTROPHIL # 1.7 10^3/ul (1.6-7.5); NEUTROPHILS % 49.5 % (39.0-77.0); PLATELET COUNT 196 10^3/UL (140-415); RED CELL DISTRIBUTION WIDTH 19.9 % (11.5-14.5)
[2017-12-21 06:02] LABS: WHITE BLOOD COUNT 3.4 10^3/ul (4.8-10.8)
[2017-12-21 06:25] LABS: ANION GAP 17 (8-16); BLOOD UREA NITROGEN 11 mg/dl (7-20); CALCIUM 9.1 mg/dl (8.4-10.2); CARBON DIOXIDE 29 mmol/L (21-31); CHLORIDE 96 mmol/L (97-110); CREATININE 1.15 mg/dl (0.61-1.24); GLUCOSE 90 mg/dl (70-220); POTASSIUM 4.4 mmol/L (3.5-5.1); SODIUM 138 mmol/L (135-144)
[2017-12-21 06:37] LABS: LIPASE 288 U/L (23-300)
[2017-12-21] MEDS ORDERED: LIDOCAINE 2% (SDV) 5 ML INJ (07:00)
[2017-12-21] MEDS: THYROID 30 MG TAB PO (11:20)
[2017-12-21] MEDS: D5W-0.45 NACL + KCL 20 MEQ 1,000 ML IV (11:20)
[2017-12-21] MEDS: LISINOPRIL 10 MG TAB PO (11:21)
[2017-12-21 12:56] LABS: CARCINOEMBRYONIC ANTIGEN 0.9 ng/ml (0.0-5.0)
[2017-12-21 13:00] LABS: CANCER ANTIGEN 19-9 8.9 U/ml (0.0-37.0)
[2017-12-21] MEDS: DICYCLOMINE 10 MG CAP NGT ×2 (13:34→21:34)
[2017-12-21] MEDS: TAMSULOSIN (SR) 0.4 MG CAP PO (21:34)
[2017-12-21] MEDS: ATORVASTATIN 20 MG TAB PO (21:34)
[2017-12-22] MEDS: D5W-0.45 NACL + KCL 20 MEQ 1,000 ML IV ×2 (00:22→13:05)
[2017-12-22] MEDS: HYDROmorphONE 1 MG/ML SYG IV ×3 (02:36→21:43)
[2017-12-22 05:06] LABS: ADD MAN DIFF? NO
[2017-12-22 05:09] LABS: WHITE BLOOD COUNT 3.4 10^3/ul (4.8-10.8)
[2017-12-22 05:09] LABS: BASOPHILS % 0.3 % (0.0-2.0); EOSINOPHILS # 0.3 10^3/ul (0.0-0.5); EOSINOPHILS % 7.7 % (0.0-7.0); HEMATOCRIT 41.3 % (42.0-52.0); LYMPHOCYTES # 1.3 10^3/ul (0.8-2.9); LYMPHOCYTES % 38.3 % (15.0-51.0); MEAN CORPUSCULAR HEMOGLOBIN 24.3 pg (29.0-33.0); MEAN CORPUSCULAR HGB CONC 31.5 g/dl (32.0-37.0); MEAN CORPUSCULAR VOLUME 77.2 fl (82.0-101.0); MEAN PLATELET VOLUME 10.2 fl (7.4-10.4); MONOCYTE # 0.4 10^3/ul (0.3-0.9); MONOCYTES % 12.5 % (0.0-11.0); NEUTROPHIL # 1.4 10^3/ul (1.6-7.5); NEUTROPHILS % 40.9 % (39.0-77.0); PLATELET COUNT 214 10^3/UL (140-415); RED BLOOD COUNT 5.35 10^6/ul (4.70-6.10); RED CELL DISTRIBUTION WIDTH 17.7 % (11.5-14.5)
[2017-12-22 05:32] LABS: LIPASE 245 U/L (23-300)
[2017-12-22 05:37] LABS: ANION GAP 10 (8-16); BLOOD UREA NITROGEN 8 mg/dl (7-20); CALCIUM 8.8 mg/dl (8.4-10.2); CARBON DIOXIDE 29 mmol/L (21-31); CHLORIDE 105 mmol/L (97-110); CREATININE 0.85 mg/dl (0.61-1.24); GLUCOSE 90 mg/dl (70-220); POTASSIUM 4.3 mmol/L (3.5-5.1); SODIUM 140 mmol/L (135-144)
[2017-12-22] MEDS: PANTOPRAZOLE 40 MG INJ IV (06:13)
[2017-12-22] MEDS: DICYCLOMINE 10 MG CAP NGT ×3 (06:13→21:43)
[2017-12-22] MEDS: LISINOPRIL 10 MG TAB PO (08:16)
[2017-12-22] MEDS: THYROID 30 MG TAB PO (08:16)
[2017-12-22] MEDS: ONDANSETRON 4 MG INJ IV ×2 (17:00→21:57)
[2017-12-22] MEDS: PROPOFOL 40 ML (17:47)
[2017-12-22] MEDS: ATORVASTATIN 20 MG TAB PO (21:43)
[2017-12-22] MEDS: TAMSULOSIN (SR) 0.4 MG CAP PO (21:43)
[2017-12-23] MEDS: HYDROmorphONE 1 MG/ML SYG IV ×7 (01:10→22:21)
[2017-12-23] MEDS: D5W-0.45 NACL + KCL 20 MEQ 1,000 ML IV ×2 (01:10→14:04)
[2017-12-23 05:26] LABS: ADD MAN DIFF? NO
[2017-12-23 05:33] LABS: WHITE BLOOD COUNT 3.5 10^3/ul (4.8-10.8)
[2017-12-23 05:33] LABS: BASOPHILS % 0.3 % (0.0-2.0); EOSINOPHILS # 0.2 10^3/ul (0.0-0.5); EOSINOPHILS % 6.5 % (0.0-7.0); HEMATOCRIT 42.9 % (42.0-52.0); HEMOGLOBIN 13.5 g/dl (14.0-18.0); LYMPHOCYTES # 0.9 10^3/ul (0.8-2.9); LYMPHOCYTES % 26.6 % (15.0-51.0); MEAN CORPUSCULAR HEMOGLOBIN 25.2 pg (29.0-33.0); MEAN CORPUSCULAR HGB CONC 31.5 g/dl (32.0-37.0); MEAN PLATELET VOLUME 10.3 fl (7.4-10.4); MONOCYTE # 0.3 10^3/ul (0.3-0.9); MONOCYTES % 9.6 % (0.0-11.0); NEUTROPHILS % 56.7 % (39.0-77.0); PLATELET COUNT 204 10^3/UL (140-415); RED BLOOD COUNT 5.36 10^6/ul (4.70-6.10); RED CELL DISTRIBUTION WIDTH 18.8 % (11.5-14.5)
[2017-12-23 05:53] LABS: ANION GAP 11 (8-16); BLOOD UREA NITROGEN 6 mg/dl (7-20); CALCIUM 8.7 mg/dl (8.4-10.2); CARBON DIOXIDE 31 mmol/L (21-31); CHLORIDE 102 mmol/L (97-110); CREATININE 1.06 mg/dl (0.61-1.24); GLUCOSE 98 mg/dl (70-220); SODIUM 140 mmol/L (135-144)
[2017-12-23] MEDS: DICYCLOMINE 10 MG CAP NGT ×3 (06:15→21:29)
[2017-12-23] MEDS: PANTOPRAZOLE 40 MG INJ IV (06:15)
[2017-12-23] MEDS: THYROID 30 MG TAB PO (08:31)
[2017-12-23] MEDS: LISINOPRIL 10 MG TAB PO (08:34)
[2017-12-23] MEDS: LORAZEPAM 2 MG INJ IV (16:20)
[2017-12-23] MEDS ORDERED: LORAZEPAM 2 MG INJ IV (16:30)
[2017-12-23] MEDS: TAMSULOSIN (SR) 0.4 MG CAP PO (21:29)
[2017-12-23] MEDS: ATORVASTATIN 20 MG TAB PO (21:29)
[2017-12-23] MEDS: ONDANSETRON 4 MG INJ IV (22:20)
[2017-12-24] MEDS: D5W-0.45 NACL + KCL 20 MEQ 1,000 ML IV ×3 (01:50→22:37)
[2017-12-24] MEDS: PANTOPRAZOLE 40 MG INJ IV (05:17)
[2017-12-24] MEDS: DICYCLOMINE 10 MG CAP NGT ×3 (05:18→20:38)
[2017-12-24] MEDS: HYDROmorphONE 1 MG/ML SYG IV ×5 (05:20→20:38)
[2017-12-24] MEDS: LISINOPRIL 10 MG TAB PO (08:31)
[2017-12-24] MEDS: THYROID 30 MG TAB PO (08:31)
[2017-12-24] MEDS: TAMSULOSIN (SR) 0.4 MG CAP PO (20:37)
[2017-12-24] MEDS: ATORVASTATIN 20 MG TAB PO (20:37)
[2017-12-25] MEDS: HYDROmorphONE 1 MG/ML SYG IV ×7 (00:09→22:31)
[2017-12-25] MEDS: D5W-0.45 NACL + KCL 20 MEQ 1,000 ML IV ×3 (02:50→22:31)
[2017-12-25 05:11] LABS: ADD MAN DIFF? NO
[2017-12-25 05:17] LABS: BASOPHILS % 0.5 % (0.0-2.0); EOSINOPHILS # 0.3 10^3/ul (0.0-0.5); EOSINOPHILS % 6.6 % (0.0-7.0); HEMATOCRIT 42.5 % (42.0-52.0); HEMOGLOBIN 13.3 g/dl (14.0-18.0); LYMPHOCYTES # 1.1 10^3/ul (0.8-2.9); LYMPHOCYTES % 25.5 % (15.0-51.0); MEAN CORPUSCULAR HEMOGLOBIN 24.3 pg (29.0-33.0); MEAN CORPUSCULAR HGB CONC 31.3 g/dl (32.0-37.0); MEAN CORPUSCULAR VOLUME 77.7 fl (82.0-101.0); MEAN PLATELET VOLUME 10.3 fl (7.4-10.4); MONOCYTE # 0.4 10^3/ul (0.3-0.9); MONOCYTES % 10.2 % (0.0-11.0); NEUTROPHIL # 2.4 10^3/ul (1.6-7.5); PLATELET COUNT 206 10^3/UL (140-415); RED BLOOD COUNT 5.47 10^6/ul (4.70-6.10); RED CELL DISTRIBUTION WIDTH 18.6 % (11.5-14.5)
[2017-12-25 05:17] LABS: WHITE BLOOD COUNT 4.1 10^3/ul (4.8-10.8)
[2017-12-25] MEDS: PANTOPRAZOLE 40 MG INJ IV (05:17)
[2017-12-25] MEDS: DICYCLOMINE 10 MG CAP NGT ×3 (05:17→21:46)
[2017-12-25 05:40] LABS: ANION GAP 10 (8-16); BLOOD UREA NITROGEN 6 mg/dl (7-20); CALCIUM 8.6 mg/dl (8.4-10.2); CARBON DIOXIDE 31 mmol/L (21-31); CHLORIDE 101 mmol/L (97-110); GLUCOSE 101 mg/dl (70-220); POTASSIUM 4.2 mmol/L (3.5-5.1); SODIUM 138 mmol/L (135-144)
[2017-12-25] MEDS: LISINOPRIL 10 MG TAB PO (09:00)
[2017-12-25] MEDS: THYROID 30 MG TAB PO (09:13)
[2017-12-25] MEDS: ATORVASTATIN 20 MG TAB PO (21:46)
[2017-12-25] MEDS: TAMSULOSIN (SR) 0.4 MG CAP PO (21:46)
[2017-12-26] MEDS: ONDANSETRON 4 MG INJ IV ×2 (01:30→15:13)
[2017-12-26] MEDS: HYDROmorphONE 1 MG/ML SYG IV ×6 (03:45→20:51)
[2017-12-26 05:38] LABS: LIPASE 148 U/L (23-300)
[2017-12-26] MEDS: PANTOPRAZOLE 40 MG INJ IV (06:45)
[2017-12-26] MEDS: DICYCLOMINE 10 MG CAP NGT ×3 (06:45→21:42)
[2017-12-26] MEDS: THYROID 30 MG TAB PO (08:22)
[2017-12-26] MEDS: LISINOPRIL 10 MG TAB PO (09:00)
[2017-12-26] MEDS: D5W-0.45 NACL + KCL 20 MEQ 1,000 ML IV (11:26)
[2017-12-26] MEDS: TAMSULOSIN (SR) 0.4 MG CAP PO (20:47)
[2017-12-26] MEDS: ATORVASTATIN 20 MG TAB PO (20:47)
[2017-12-27] MEDS: D5W-0.45 NACL + KCL 20 MEQ 1,000 ML IV (00:12)
[2017-12-27] MEDS: ONDANSETRON 4 MG INJ IV ×2 (01:22→12:43)
[2017-12-27] MEDS: HYDROmorphONE 1 MG/ML SYG IV ×4 (01:23→16:04)
[2017-12-27] MEDS: PANTOPRAZOLE 40 MG INJ IV (07:13)
[2017-12-27] MEDS: DICYCLOMINE 10 MG CAP NGT ×2 (07:13→13:01)
[2017-12-27] MEDS: LISINOPRIL 10 MG TAB PO (07:58)
[2017-12-27] MEDS: THYROID 30 MG TAB PO (08:05)
== END 2017-12-27 17:55 | disposition home or self-care (01) | DRG 439 ==
LOC: E/R 22:27 → MS1 12-20 20:40
PROC: 0DJD8ZZ Inspection of Lower Intestinal Tract, Via Natural or Artificial Opening Endoscopic (ICD-10-PCS; principal; 2017-12-21 09:30)
DX: K85.90 Acute pancreatitis without necrosis or infection, unspecified (principal); N39.0 Urinary tract infection, site not specified; L03.114 Cellulitis of left upper limb; N50.3 Cyst of epididymis; M54.9 Dorsalgia, unspecified; G89.29 Other chronic pain; I10 Essential (primary) hypertension; E03.9 Hypothyroidism, unspecified; K57.90 Diverticulosis of intestine, part unspecified, without perforation or abscess without bleeding; N40.0 Benign prostatic hyperplasia without lower urinary tract symptoms; K21.9 Gastro-esophageal reflux disease without esophagitis; K64.4 Residual hemorrhoidal skin tags; I86.8 Varicose veins of other specified sites; D72.819 Decreased white blood cell count, unspecified; D45 Polycythemia vera
CPT/HCPCS: 36415; 71045; 72148; 73030-RT; 74176; 74181; 76870; 80048; 80053; 81001; 81003; 82150; 82378; 83605; 83690; 84450; 84460; 84478; 84484; 85025; 85610; 85730; 86301; 87040; 87086; 96365; 96375; 99285-25

== ENCOUNTER 2018-08-04 01:19 | Emergency (ER) | payer BC ==
[2018-08-04] MEDS: DIPHENHYDRAMINE 50 MG INJ IV (01:25)
[2018-08-04] MEDS: EPINEPHrine 1 MG INJ IM (01:26)
[2018-08-04] MEDS: METHYLPREDNISOLONE 125 MG INJ IV (01:26)
[2018-08-04] MEDS: FAMOTIDINE 20 MG INJ IV (01:28)
[2018-08-04 01:33] LABS: AADO2 Arterial 291.9 mmHg (7.0-24.0); Allen Test ACCEPTAB; Arterial Base Excess -1.7 mmol/L (-3.0-3); Arterial Blood Gas Oxygen Sat 99.8 mmHG (95.0-98.0); Arterial COHb 0.3 % (0.0-3.0); Arterial Fraction of Oxyhgb 99.1 % (93.0-99.0); Arterial HCO3 21.3 mmol/L (22.0-26.0); Arterial MetHb 0.4 % (0.0-1.5); Arterial pCO2 31.4 mmhg (35-45); MODE MASK - NRB; Site Right Radial
[2018-08-04] MEDS: IPRATROPIUM (NEB) 0.5 MG/2.5 ML AMP INH (01:40)
[2018-08-04] MEDS: ALBUTEROL 0.5% (NEB) 2.5 MG/0.5 ML AMP INH (01:41)
[2018-08-04 01:47] LABS: ADD MAN DIFF? NO
[2018-08-04 01:49] LABS: BASOPHILS % 0.6 % (0.0-2.0); EOSINOPHILS # 0.3 10^3/ul (0.0-0.5); EOSINOPHILS % 5.2 % (0.0-7.0); HEMATOCRIT 43.2 % (42.0-52.0); LYMPHOCYTES # 2.4 10^3/ul (0.8-2.9); LYMPHOCYTES % 44.1 % (15.0-51.0); MEAN CORPUSCULAR HEMOGLOBIN 23.6 pg (29.0-33.0); MEAN CORPUSCULAR HGB CONC 30.1 g/dl (32.0-37.0); MEAN CORPUSCULAR VOLUME 78.3 fl (82.0-101.0); MEAN PLATELET VOLUME 9.7 fl (7.4-10.4); MONOCYTE # 0.6 10^3/ul (0.3-0.9); MONOCYTES % 11.5 % (0.0-11.0); NEUTROPHIL # 2.1 10^3/ul (1.6-7.5); NEUTROPHILS % 38.4 % (39.0-77.0); PLATELET COUNT 245 10^3/UL (140-415); RED BLOOD COUNT 5.52 10^6/ul (4.70-6.10); RED CELL DISTRIBUTION WIDTH 17.4 % (11.5-14.5)
[2018-08-04 01:49] LABS: WHITE BLOOD COUNT 5.4 10^3/ul (4.8-10.8)
[2018-08-04 02:07] LABS: ANION GAP 11 (5-13); BLOOD UREA NITROGEN 17 mg/dl (7-20); CALCIUM 9.1 mg/dl (8.4-10.2); CARBON DIOXIDE 26 mmol/L (21-31); CHLORIDE 107 mmol/L (97-110); CREATININE 1.12 mg/dl (0.61-1.24); Estimated GFR > 60 mL/min (>60); GLUCOSE 110 mg/dl (70-220); POTASSIUM 3.8 mmol/L (3.5-5.1); SODIUM 144 mmol/L (135-144)
[2018-08-04 02:08] LABS: INR 0.85; PROTIME 11.7 Sec (11.9-14.9); PT RATIO 0.9
[2018-08-04 02:09] LABS: PARTIAL THROMBOPLASTIN TIME 25.4 Sec (23.0-35.0)
[2018-08-04 02:18] LABS: TROPONIN-I < 0.012 ng/ml (0.000-0.120)
[2018-08-04] MEDS ORDERED: IBUPROFEN 200 MG TAB (04:17)
== END 2018-08-04 04:17 | disposition home or self-care (01) ==
LOC: E/R 01:19
DX: D64.9 Anemia, unspecified (principal); I10 Essential (primary) hypertension; J45.901 Unspecified asthma with (acute) exacerbation; F41.9 Anxiety disorder, unspecified; Z79.82 Long term (current) use of aspirin
CPT/HCPCS: 36415; 36600; 71045; 80048; 82803; 83605; 84484; 85025; 85610; 85730; 93005; 94644; 96372; 96374; 96375; 99285-25